=== PATIENT | male | born 1990 | race Caucasian/White ===

== ENCOUNTER 2021-06-21 12:25 | Emergency (ER) | payer OTHER ==
[2021-06-21 12:33] VITALS: BP 115/67; PULSE 89; TEMP 98; BMI 30.4
== END 2021-06-21 14:29 | disposition home or self-care (01) ==
LOC: FER 12:25
DX: R55 Syncope and collapse (principal)
CPT/HCPCS: 70450-TC; 99284-25

== ENCOUNTER 2022-10-01 04:11 | Emergency (ER) | payer OTHER ==
[2022-10-01 04:19] VITALS: BP 147/107; PULSE 65; RESP 18; TEMP 98.9; BMI 33.6
[2022-10-01] MEDS ORDERED: CLINDAMYCIN HCL 300 MG CAPSULE PO ONE (04:29)
[2022-10-01] MEDS ORDERED: DIPHTH,PERTUSS(ACELL),TET 0.5 ML DISP.SYRIN IM ONE ×2 (04:29→04:30)
[2022-10-01] MEDS ORDERED: CLINDAMYCIN HCL 150 MG CAPSULE (FP) ONE (04:30)
== END 2022-10-01 04:39 | disposition home or self-care (01) ==
LOC: FER 04:11
PROC: 3E0234Z Introduction of Serum, Toxoid and Vaccine into Muscle, Percutaneous Approach (ICD-10-PCS; principal; 2022-10-01)
DX: S60.511A Abrasion of right hand, initial encounter (principal); L03.113 Cellulitis of right upper limb; Y35.91XA Legal intervention, means unspecified, law enforcement official injured, initial encounter
CPT/HCPCS: 90715; 99284-25

== ENCOUNTER 2022-10-07 05:18 | Emergency (ER) | payer OTHER ==
[2022-10-07] MEDS ORDERED: ACETAMINOPHEN 500 MG TABLET (FP) PO ONE (05:26)
[2022-10-07] MEDS ORDERED: ACETAMINOPHEN 500 MG TABLET (FP) ONE (05:29)
[2022-10-07 05:35] VITALS: BP 133/101; PULSE 75; RESP 16; TEMP 98.2; BMI 29.7
== END 2022-10-07 05:35 | disposition home or self-care (01) ==
LOC: FER 05:18
DX: S70.01XA Contusion of right hip, initial encounter (principal); M25.551 Pain in right hip; W01.0XXA Fall on same level from slipping, tripping and stumbling without subsequent striking against object, initial encounter; Y99.0 Civilian activity done for income or pay
CPT/HCPCS: 99282-25

== ENCOUNTER 2023-03-17 08:53 | Emergency (ER) | payer OTHER ==
[2023-03-17] MEDS ORDERED: METHOCARBAMOL 500 MG TABLET PO ONE (09:14)
[2023-03-17] MEDS ORDERED: LIDOCAINE 5% TOPICAL PATCH TP ONE (09:14)
[2023-03-17] MEDS ORDERED: KETOROLAC TROMETHAMINE 15 MG/ML VIAL IM ONE (09:14)
[2023-03-17 09:19] VITALS: BP 114/84; PULSE 84; RESP 20; TEMP 98.2; BMI 32.8
[2023-03-17] MEDS ORDERED: METHOCARBAMOL 500 MG TABLET ONE (09:23)
[2023-03-17] MEDS ORDERED: KETOROLAC TROMETHAMINE 15 MG/ML VIAL ONE (09:23)
[2023-03-17] MEDS ORDERED: LIDOCAINE 5% TOPICAL PATCH ONE (09:24)
[2023-03-17] MEDS ORDERED: LIDOCAINE PATCH REMOVAL MC SCH (22:00)
== END 2023-03-17 10:35 | disposition home or self-care (01) ==
LOC: FER 08:53
PROC: 3E0233Z Introduction of Anti-inflammatory into Muscle, Percutaneous Approach (ICD-10-PCS; principal; 2023-03-17)
DX: M62.830 Muscle spasm of back (principal)
CPT/HCPCS: 99284-25

== ENCOUNTER 2024-01-11 05:20 | Emergency (ER) | payer OTHER ==
[2024-01-11 06:16] VITALS: BP 128/73; PULSE 105; RESP 18; TEMP 99.7; BMI 29.2
== END 2024-01-11 06:56 | disposition home or self-care (01) ==
LOC: FER 05:20
DX: S66.912A Strain of unspecified muscle, fascia and tendon at wrist and hand level, left hand, initial encounter (principal); S39.012A Strain of muscle, fascia and tendon of lower back, initial encounter; Y35.811A Legal intervention involving manhandling, law enforcement official injured, initial encounter
CPT/HCPCS: 73110-TC-LT-FY; 99283-25

== ENCOUNTER 2024-02-15 05:06 | Emergency (ER) | payer OTHER ==
[2024-02-15 05:10] VITALS: BP 129/86; PULSE 77; RESP 17; TEMP 98; BMI 33.4
[2024-02-15] MEDS ORDERED: IBUPROFEN 600 MG TABLET (FP) PO ONE (05:49)
[2024-02-15] MEDS ORDERED: LIDOCAINE 5% TOPICAL PATCH ONE (05:50)
[2024-02-15] MEDS ORDERED: CYCLOBENZAPRINE HCL 5 MG TABLET ONE (05:51)
[2024-02-15] MEDS: IBUPROFEN 600 MG TABLET (FP) PO ONE (06:00)
[2024-02-15] MEDS: CYCLOBENZAPRINE HCL 10 MG TABLET (FP) PO ONE (06:01)
[2024-02-15] MEDS: LIDOCAINE 5% TOPICAL PATCH TP ONE (06:01)
[2024-02-15] MEDS ORDERED: LIDOCAINE PATCH REMOVAL MC SCH (22:00)
== END 2024-02-15 08:00 | disposition home or self-care (01) ==
LOC: FER 05:06
PROC: 2W3CX1Z Immobilization of Right Lower Arm using Splint (ICD-10-PCS; principal; 2024-02-15)
DX: S63.501A Unspecified sprain of right wrist, initial encounter (principal); M62.830 Muscle spasm of back; M79.645 Pain in left finger(s); Y04.0XXA Assault by unarmed brawl or fight, initial encounter; Y35.811A Legal intervention involving manhandling, law enforcement official injured, initial encounter
CPT/HCPCS: 72070-TC-FY; 73090-TC-RT-FY; 99284-25

== ENCOUNTER 2024-05-18 00:41 | Emergency (ER) | payer OTHER ==
[2024-05-18] MEDS ORDERED: IBUPROFEN 600 MG TABLET (FP) PO ONE (00:48)
[2024-05-18 00:59] VITALS: BP 142/99; PULSE 83; RESP 18; TEMP 98.2; BMI 34.4
[2024-05-18] MEDS: IBUPROFEN 600 MG TABLET (FP) PO ONE (00:59)
== END 2024-05-18 02:14 | disposition home or self-care (01) ==
LOC: FER 00:41
DX: S83.91XA Sprain of unspecified site of right knee, initial encounter (principal); Y35.811A Legal intervention involving manhandling, law enforcement official injured, initial encounter
CPT/HCPCS: 70200-TC-FY; 73560-TC-RT-FY; 99283-25

== ENCOUNTER 2025-01-25 04:33 | Emergency (ER) | payer OTHER ==
[2025-01-25 04:56] VITALS: BP 119/83; PULSE 83; RESP 18; TEMP 98; BMI 33.5
[2025-01-25] MEDS ORDERED: IBUPROFEN 600 MG TABLET (FP) PO ONE (05:42)
[2025-01-25] MEDS ORDERED: LIDOCAINE 5% TOPICAL PATCH ONE (05:42)
[2025-01-25] MEDS: IBUPROFEN 400 MG TABLET (FP) PO ONE (05:46)
[2025-01-25] MEDS: LIDOCAINE 5% TOPICAL PATCH TP ONE (05:46)
[2025-01-25] MEDS ORDERED: ONDANSETRON 4 MG/2 ML VIAL IVPUSH ONE (06:23)
[2025-01-25] MEDS ORDERED: LIDOCAINE PATCH REMOVAL MC SCH (22:00)
== END 2025-01-25 06:40 | disposition home or self-care (01) ==
LOC: JER 04:33
DX: M54.6 Pain in thoracic spine (principal); Y35.811A Legal intervention involving manhandling, law enforcement official injured, initial encounter
CPT/HCPCS: 99283-25